=== PATIENT | female | born 1945 | race Caucasian/White ===

== ENCOUNTER 2016-07-30 09:33 | Day surgery (SDC) | payer MEDICARE, BC ==
[2016-07-30 10:33] LABS: HEMATOCRIT 41.9 % (36.0-47.0); HEMOGLOBIN 13.6 g/dL (12.0-15.5); HGB HCT DIFFERENCE -1.1; MEAN CORPUSCULAR HEMOGLOBIN 29.2 pg (27.0-33.4); MEAN CORPUSCULAR HGB CONC 32.5 g/dL (32.0-36.0); MEAN CORPUSCULAR VOLUME 90 fl (80-97); RED BLOOD COUNT 4.65 10^6/uL (3.72-5.28); RED CELL DISTRIBUTION WIDTH 13.9 % (11.5-14.0); WHITE BLOOD COUNT 3.9 10^3/uL (4.0-10.5)
[2016-07-30 10:41] LABS: PROTHROMBIN TIME 13.6 SEC (11.4-15.4)
[2016-07-30 10:42] LABS: PARTIAL THROMBOPLASTIN TIME 28.5 SEC (23.5-35.8)
[2016-07-30 10:59] LABS: ANION GAP 14 (5-19); BLOOD UREA NITROGEN 16 mg/dL (7-20); CALCIUM 9.2 mg/dL (8.4-10.2); CARBON DIOXIDE 22 mmol/L (22-30); CHLORIDE 109 mmol/L (98-107); GLUCOSE 71 mg/dL (75-110); POTASSIUM 4.3 mmol/L (3.6-5.0); SODIUM 145.3 mmol/L (137-145)
[2016-07-30] MEDS ORDERED: NALOXONE HCL INJ/PF 0.4 MG/1 ML SDV ONE (10:59)
[2016-07-30] MEDS ORDERED: PROMETHAZINE HCL INJ 25 MG/1 ML VIAL ONE (10:59)
[2016-07-30] MEDS ORDERED: ONDANSETRON HCL INJ/PF 4 MG/2 ML SDV ONE (10:59)
[2016-07-30] MEDS ORDERED: GLYCOPYRROLATE INJ 0.4 MG/2 ML VIAL ONE (10:59)
[2016-07-30] MEDS ORDERED: FLUMAZENIL INJ 0.5 MG/5 ML VIAL IV ONE (11:00)
[2016-07-30] MEDS ORDERED: EPINEPHRINE INJ 1 MG/10 ML DISP.SYRIN ONE (11:00)
[2016-07-30] MEDS ORDERED: MIDAZOLAM 2 MG/2 ML INJ ONE (11:00)
[2016-07-30] MEDS ORDERED: GLUCAGON,HUMAN RECOMB 1 MG INJ ONE (11:01)
[2016-07-30] MEDS: MIDAZOLAM 2 MG/2 ML INJ ONE ×3 (11:30→11:38)
[2016-07-30] MEDS: FENTANYL CITRATE INJ/PF 100 MCG/2 ML AMPUL ONE ×3 (11:34→12:00)
--- NOTE | 2016-07-30 12:31 | Operative Report ---
Operative Report DATE OF SURGERY: 07/30/16 PREOPERATIVE DIAGNOSIS: Blood per rectum POSTOPERATIVE DIAGNOSIS: Descending colon mass, 3 column internal hemorrhoids OPERATION: Colonoscopy with biopsy of descending colon mass with tattoo marking. Anoscopy with hemorrhoidal banding 3 SURGEON: SARITA MOSES ANESTHESIA: Moderate Sedation TISSUE REMOVED OR ALTERED: Descending colon mass biopsy COMPLICATIONS: None ESTIMATED BLOOD LOSS: minimal INTRAOPERATIVE FINDINGS: Prominent 3 column internal hemorrhoids. Markedly redundant sigmoid colon. At what appears to be the descending colon a 3 cm sessile highly suspicious mucosal irregularity. PROCEDURE: Informed consent was obtained. Patient was brought to the endoscopy suite and placed on the endoscopy suite table with her left side down. IV sedation with Versed and fentanyl was administered. Digital rectal exam revealed no palpable perianal masses. Although she did have the perianal skin tags. Endoscope was passed via the patient's anus it was fed to the cecum the sigmoid colon was markedly redundant making the procedure somewhat difficult during the passage of this area. The cecum appeared normal as did the right colon and the transverse colon. At what appeared to be the descending colon there was a 3 cm ridge of mucosal irregularity/mass. It was highly suspicious for malignancy. This area was biopsied multiple times. Yolanda ink was injected at 3 quadrants. Sigmoid colon other than his marked redundancy appeared normal. Rectum appeared normal. Anoscopy demonstrated prominent 3 column internal hemorrhoids. Right anterior, right posterior, and left lateral hemorrhoidal complexes were all suctioned banded, taking great care to place the bands above the level of the dentate line. Patient tolerated procedure well with no apparent complications and was taken to the recovery area in stable condition. Patient's rectal bleeding most certainly secondary to her internal hemorrhoids now status post successful rubber band ligation 3. Patient with highly suspicious area in the descending colon status post biopsy and Yolanda ink marking. I will follow-up with the patient with the biopsy results next week.
--- NOTE | 2016-07-30 12:38 | PDOC DISCHARGE SUMMARY ---
Discharge Summary (SDC) - Discharge Final Diagnosis: 3 column internal hemorrhoids. Suspicious 3 cm mass at the descending colon. Date of Surgery: 07/30/16 Discharge Date: 07/30/16 Condition: Good Treatment or Instructions: Underwent colonoscopy with biopsy of descending colon mass with Yolanda ink marking. Anoscopy with 3 column internal hemorrhoidal banding. Follow-up with me next week. Prescriptions: Docusate Sodium [Colace 100 mg Capsule] 100 mg PO BID #60 capsule Oxycodone HCl/Acetaminophen [Percocet 5-325 mg Tablet] 1 tab PO ASDIR PRN #25 tablet PRN Reason: Discharge Diet: As Tolerated Discharge Activity: Activity As Tolerated Report the Following to Your Physician Immediately: Increase in Pain - Normal to have the anal discomfort but call M.D. for severe pain, Fever over 101 Degrees, Unusual Bleeding - Normal to have small amounts of blood per rectum. Other Items to Report to MD: inability to urinate.
[2016-07-30 13:21] VITALS: BP 115/57
== END 2016-07-30 13:25 | disposition home or self-care (01) ==
LOC: END 09:33
PROVIDERS: ATTEND Surgery
PROC: 0DBM8ZX Excision of Descending Colon, Via Natural or Artificial Opening Endoscopic, Diagnostic (ICD-10-PCS; principal; 2016-07-30 11:00)
PROC: 06LY0CC Occlusion of Hemorrhoidal Plexus with Extraluminal Device, Open Approach (ICD-10-PCS; 2016-07-30 11:00)
DX: K62.5 Hemorrhage of anus and rectum (principal); K64.8 Other hemorrhoids; D12.4 Benign neoplasm of descending colon; Z88.5 Allergy status to narcotic agent; Z86.73 Personal history of transient ischemic attack (TIA), and cerebral infarction without residual deficits; I10 Essential (primary) hypertension; M19.90 Unspecified osteoarthritis, unspecified site; Z79.82 Long term (current) use of aspirin; Z79.899 Other long term (current) drug therapy
CPT/HCPCS: 45380; 46221; 36415; 85027; 85610; 85730; 80048; 88305 ×2; J2250; J3010; J0171; J1610; J2310; J2405; J2550; J3490

== ENCOUNTER 2016-09-10 09:31 | Inpatient (IN) | payer MEDICARE, BC ==
[2016-09-03 10:35] LABS: HEMATOCRIT 35.4 % (36.0-47.0); HEMOGLOBIN 11.6 g/dL (12.0-15.5); HGB HCT DIFFERENCE -0.6; MEAN CORPUSCULAR HEMOGLOBIN 29.1 pg (27.0-33.4); MEAN CORPUSCULAR HGB CONC 32.8 g/dL (32.0-36.0); MEAN CORPUSCULAR VOLUME 89 fl (80-97); RED BLOOD COUNT 3.99 10^6/uL (3.72-5.28); WHITE BLOOD COUNT 4.7 10^3/uL (4.0-10.5)
[2016-09-03 11:00] LABS: ALANINE AMINOTRANSFERASE 29 U/L (9-52); ALBUMIN 3.7 g/dL (3.5-5.0); ALKALINE PHOSPHATASE 58 U/L (38-126); ANION GAP 8 (5-19); ASPARTATE AMINO TRANSFERASE 30 U/L (14-36); BILIRUBIN,TOTAL 0.4 mg/dL (0.2-1.3); BLOOD UREA NITROGEN 13 mg/dL (7-20); CALCIUM 9.1 mg/dL (8.4-10.2); CARBON DIOXIDE 23 mmol/L (22-30); CHLORIDE 113 mmol/L (98-107); GLUCOSE 91 mg/dL (75-110); POTASSIUM 3.9 mmol/L (3.6-5.0); SODIUM 144.1 mmol/L (137-145); TOTAL PROTEIN 6.3 g/dL (6.3-8.2)
[2016-09-03 11:27] LABS: CARCINOEMBRYONIC ANTIGEN 0.5 ng/mL (<3.0)
[~2016-09-10 09:31] MED LIST: BUPIVACAINE HCL 0.25 % INJ/PF (2.5 MG/1 ML) 30 ML VIAL ONE; ERTAPENEM SODIUM 1 GM in NORMAL SALINE 50 ML IV PRN; GLUCAGON,HUMAN RECOMB 1 MG INJ ONE; RINGERS SOLUTION,LACTATED 1,000 ML IV PRN
[2016-09-10] MEDS ORDERED: PROPOFOL INJ 200 MG/20 ML VIAL IV ONE (10:32)
[2016-09-10] MEDS ORDERED: MIDAZOLAM 2 MG/2 ML INJ ONE (10:32)
[2016-09-10] MEDS ORDERED: FENTANYL CITRATE INJ/PF 250 MCG/5 ML AMPULE ONE ×2 (10:32→12:57)
[2016-09-10] MEDS ORDERED: ACETAMINOPHEN 100 ML IV ONE (10:33)
[2016-09-10] MEDS ORDERED: MORPHINE SULFATE 10 MG/ML INJ ONE (10:34)
[2016-09-10] MEDS ORDERED: PROMETHAZINE HCL INJ 25 MG/1 ML VIAL IV PRN ×2 (12:49)
[2016-09-10] MEDS ORDERED: DIPHENHYDRAMINE HCL 50 MG/ML VIAL IV PRN (12:49)
[2016-09-10] MEDS ORDERED: MORPHINE SULFATE 10 MG/ML INJ IV PRN (12:49)
[2016-09-10] MEDS ORDERED: OXYCODONE-ACETAMINOPHEN 5-325 MG TABLET PO PRN ×2 (12:49)
[2016-09-10] MEDS ORDERED: MEPERIDINE HCL/PF INJ 25 MG/1 ML DISP.SYRIN IV PRN (12:49)
[2016-09-10] MEDS ORDERED: FENTANYL CITRATE INJ/PF 100 MCG/2 ML AMPUL IV PRN ×3 (12:49)
[2016-09-10] MEDS ORDERED: HYDROMORPHONE HCL INJ/PF 2 MG/ML AMPULE IV PRN (13:50)
[2016-09-10] MEDS ORDERED: KETOROLAC TROMETHAMINE INJ/PF 30 MG/1 ML SDV IV PRN (13:50)
[2016-09-10] MEDS ORDERED: ONDANSETRON HCL INJ/PF 4 MG/2 ML SDV IV PRN (13:50)
--- NOTE | 2016-09-10 13:50 | Operative Report ---
Operative Report DATE OF SURGERY: 09/10/16 PREOPERATIVE DIAGNOSIS: colon Adenomatous polyp POSTOPERATIVE DIAGNOSIS: Adenomatous polyp of the transverse colon OPERATION: Laparoscopic assisted partial transverse colon resection SURGEON: SARITA MOSES ANESTHESIA: GA TISSUE REMOVED OR ALTERED: Mid transverse colon COMPLICATIONS: None ESTIMATED BLOOD LOSS: minimal INTRAOPERATIVE FINDINGS: Tattoo marking at the mid transverse colon with 2 cm sessile mass that appeared mucosal. PROCEDURE: Informed consent was obtained. Patient was brought to the operating room placed operating table in supine position after satisfactory induction of general anesthesia patient was placed in a low lithotomy position and her abdomen and perineum were prepped and draped in usual sterile fashion. A infraumbilical midline incision was made dissection carried out through the fascia and the peritoneal cavity entered without difficulty Wade trocar was inserted pneumoperitoneum produced with good patient toleration. 5 mm trocar was placed in the right lateral abdomen a 12 mm trocar was placed low in the right lower abdomen. Laparoscopic view failed to demonstrate the the Yolanda ink marking however her anatomy appeared amenable for a laparoscopic approach. The Wade trocar was removed and the incision was extended to allow introduction of a laparoscopic hand port. With the assistance of the laparoscopic hand port I was able to identify the Yolanda ink marking. The Yolanda ink marking was clearly at the mid transverse colon. With this finding I did not feel that he would be appropriate to resect half of her colon for this benign mass. I could not feel the mass at the Yolanda ink marking and there was no evidence of puckering nor palpable mass to suggest a malignancy. The transverse colon was redundant enough that it the easily came out of the laparoscopic hand port site. The trochars were removed and the transverse colon was delivered out of the abdomen through the laparoscopic hand port site. Segmental transverse colon resection was performed mobilizing the omentum off of the transverse colon and the dividing the transverse colon proximal and distal to the Yolanda ink marking using a LAURA stapling device. The mesentery of the resected segment was taken by clamping dividing and tying post to the bowel. A hematoma develop in the mesentery adjacent to the distal transverse colon end. With this finding I elected to resect the a few more centimeters of the transverse colon using a LAURA stapling device and taking the mesentery with clamping dividing and tying. The two ends of the transverse colon appeared pink and viable with the triphasic Doppler signals in the mesentery. The two ends came together well without any tension for a [id number] functional end-to-end anastomosis. The specimen was the sent to pathology where was open verifying that the lesion of question was indeed in the specimen with good margins the margin appeared closer to the distal margin but the again a additional distal margin had been made with the further resection of that end of transverse colon. The mass felt to be mucosal and not attached to the deeper colon wall all consistent with adenoma. Anastomosis was then created the using a LAURA stapling device creating a [id number] functional end-to-end anastomosis. the enterotomy created to introduce the stapling device was closed with a TA stapling device. The mesenteric defect was closed with running Vicryl suture. Hemostasis appeared excellent. The anastomosis appeared secure. The omentum was draped over the anastomosis. Sponge needle and strength counts were all correct. The 12 mm trocar site fascial defect was closed with interrupted Vicryl sutures. The the hand port fascial defect was closed with running PDS suture. Skin was closed with morena. Marcaine was injected at the port sites. Patient tolerated procedure well with no apparent complications and was taken to the recovery area in stable condition.
[2016-09-10] MEDS ORDERED: GLYCOPYRROLATE INJ 0.4 MG/2 ML VIAL ONE (14:20)
[2016-09-10] MEDS ORDERED: NEOSTIGMINE METHYLSULFATE 10 MG/10 ML VIAL ONE (14:20)
[2016-09-10] MEDS ORDERED: ROCURONIUM BROMIDE INJ 50 MG/5 ML VIAL IV ONE (14:20)
[2016-09-10] MEDS ORDERED: ONDANSETRON HCL INJ/PF 4 MG/2 ML SDV ONE (14:20)
[2016-09-10] MEDS ORDERED: LIDOCAINE 2% INJ-PF (20 MG/ML) 10 ML AMPUL ONE (14:20)
[2016-09-10] MEDS ORDERED: SUCCINYLCHOLINE CHLORIDE INJ 200 MG/10 ML VIAL ONE (14:20)
[2016-09-10] MEDS ORDERED: METOCLOPRAMIDE HCL INJ/PF 10 MG/2 ML SDV ONE (14:20)
[2016-09-10] MEDS ORDERED: KETOROLAC TROMETHAMINE INJ/PF 30 MG/1 ML SDV ONE (14:50)
--- NOTE | 2016-09-10 23:58 | PDOC PROGRESS REPORT ---
Subjective Progress Note for:: 09/10/16 Subjective:: Feels well. No complaints Physical Exam Vital Signs: Temp Pulse Resp BP Pulse Ox 98.6 F 79 16 113/45 L 97 09/10/16 23:47 09/10/16 23:47 09/10/16 23:47 09/10/16 23:47 09/10/16 23:47 Pulse Oximeter Continuous Start: 09/10/16 17: 32 Freq: RTQ4 Status: Active Document 09/10/16 20:00 STI (Rec: 09/10/16 21:28 STI [email or web address]) Pulse Oximetry Assessment Oxygen Saturation (92-100) 97 Oxygen Delivery Method Room Air Fraction of Inspired Oxygen (FIO2) 21 Equipment Usage Equipment in Use Continuous SpO2 Machine # N-6 Intake & Output 09/09/16 09/10/16 09/11/16 06:59 06:59 06:59 Intake Total 3950 Output Total 220 Balance 3730 General appearance: PRESENT: no acute distress, cooperative Respiratory exam: PRESENT: clear to auscultation mary Cardiovascular exam: PRESENT: RRR GI/Abdominal exam: PRESENT: soft - Soft, nondistended, minimal tenderness. Extremities exam: PRESENT: other - No swelling and no tenderness. Results Laboratory Results: 09/03/16 09:34 09/03/16 09:34 Assessment & Plan - Diagnosis (1) Adenomatous polyp of transverse colon Is this a current diagnosis for this admission?: YesPlan: Status post laparoscopic assisted partial transverse colon resection. Patient looks very good. Will likely start a diet tomorrow morning.
[2016-09-11] MEDS: DEXTROSE 5%-1/2 NORMAL SALINE 1,000 ML IV PRN ×2 (00:09→08:00)
[2016-09-11 04:45] LABS: HEMATOCRIT 30.3 % (36.0-47.0); HGB HCT DIFFERENCE -0.3; MEAN CORPUSCULAR HEMOGLOBIN 28.6 pg (27.0-33.4); MEAN CORPUSCULAR HGB CONC 33.1 g/dL (32.0-36.0); MEAN CORPUSCULAR VOLUME 86 fl (80-97); RED BLOOD COUNT 3.51 10^6/uL (3.72-5.28); RED CELL DISTRIBUTION WIDTH 13.1 % (11.5-14.0); WHITE BLOOD COUNT 9.1 10^3/uL (4.0-10.5)
[2016-09-11 05:05] LABS: ANION GAP 8 (5-19); BLOOD UREA NITROGEN 10 mg/dL (7-20); CARBON DIOXIDE 20 mmol/L (22-30); CHLORIDE 109 mmol/L (98-107); CREATININE RESULT 0.74 mg/dL (0.52-1.25); GLUCOSE 148 mg/dL (75-110); POTASSIUM 3.6 mmol/L (3.6-5.0); SODIUM 137.2 mmol/L (137-145)
[2016-09-11] MEDS ORDERED: (PENDING PHARMACY ID) (Diltiazem Hcl [Diltiazem Er] 120 MG) PO SCH (10:00)
[2016-09-11] MEDS ORDERED: TOPIRAMATE 100 MG TABLET PO SCH (10:00)
[2016-09-11] MEDS ORDERED: ASPIRIN 81 MG TABLET, ENT COATED PO SCH (10:00)
--- NOTE | 2016-09-11 10:01 | PDOC PROGRESS REPORT ---
Subjective Progress Note for:: 09/11/16 Subjective:: feels well. Physical Exam Vital Signs: Temp Pulse Resp BP Pulse Ox 98.9 F 79 18 108/43 L 98 09/11/16 07:38 09/11/16 07:38 09/11/16 07:38 09/11/16 07:38 09/11/16 07:38 Pulse Oximeter Continuous Start: 09/10/16 17: 32 Freq: RTQ4 Status: Active Document 09/11/16 04:00 STI (Rec: 09/11/16 04:15 STI [email or web address]) Pulse Oximetry Assessment Oxygen Saturation (92-100) 97 Oxygen Delivery Method Room Air Fraction of Inspired Oxygen (FIO2) 21 Equipment Usage Equipment in Use Continuous SpO2 Machine # N-6 Intake & Output 09/10/16 09/11/16 09/12/16 06:59 06:59 06:59 Intake Total 5270 Output Total 820 Balance 4450 Weight 71.4 kg General appearance: PRESENT: no acute distress Respiratory exam: PRESENT: clear to auscultation mary Cardiovascular exam: PRESENT: RRR GI/Abdominal exam: PRESENT: other - soft, nd, minimal tenderness Extremities exam: PRESENT: other - no swelling Results Laboratory Results: 09/11/16 04:16 09/11/16 04:16 09/11/16 09/11/16 04:16 04:16 WBC 9.1 RBC 3.51 L Hgb 10.0 L Hct 30.3 L MCV 86 MCH 28.6 MCHC 33.1 RDW 13.1 Plt Count 160 Sodium 137.2 Potassium 3.6 Chloride 109 H Carbon Dioxide 20 L Anion Gap 8 BUN 10 Creatinine 0.74 Est GFR ( Amer) > 60 Est GFR (Non-Af Amer) > 60 Glucose 148 H Calcium 8.0 L Assessment & Plan - Diagnosis (1) Adenomatous polyp of transverse colon Is this a current diagnosis for this admission?: YesPlan: Status post laparoscopic assisted partial transverse colon resection. Patient looks very good. try clears
[2016-09-11] MEDS: MONTELUKAST SODIUM 10 MG TABLET PO SCH (10:05)
[2016-09-11] MEDS: RALOXIFENE HCL 60 MG TABLET PO SCH (10:05)
[2016-09-11] MEDS: DILTIAZEM HCL 120 MG CAP.SR.24H PO SCH (16:57)
[2016-09-11] MEDS ORDERED: DEXTROSE 5%-1/2 NORMAL SALINE 1,000 ML IV PRN (17:00)
[2016-09-11] MEDS: TOPIRAMATE 100 MG TABLET PO SCH (21:14)
--- NOTE | 2016-09-12 08:32 | PDOC PROGRESS REPORT ---
Subjective Progress Note for:: 09/12/16 Subjective:: Passing dark blood and bright red blood per rectum several times this morning. No lightheadedness. Minimal abdominal discomfort. No nausea or vomiting. Physical Exam Vital Signs: Temp Pulse Resp BP Pulse Ox 98.7 F 83 16 133/60 H 97 09/12/16 05:00 09/12/16 05:00 09/12/16 05:00 09/12/16 05:00 09/12/16 05:00 Pulse Oximeter Continuous Start: 09/10/16 17: 32 Freq: RTQ4 Status: Complete Document 09/11/16 11:48 HCR (Rec: 09/11/16 11:48 HCR [email or web address]) Pulse Oximetry Assessment Equipment Usage Equipment Discontinued Continuous SpO2 Machine # 6 Intake & Output 09/11/16 09/12/16 09/13/16 06:59 06:59 06:59 Intake Total 5270 2206 Output Total 820 Balance 4450 2206 Weight 71.4 kg 73.2 kg General appearance: PRESENT: no acute distress, cooperative Respiratory exam: PRESENT: clear to auscultation mary Cardiovascular exam: PRESENT: RRR GI/Abdominal exam: PRESENT: other - Soft, nondistended, minimal abdominal tenderness. Clean dry and intact. Musculoskeletal exam: PRESENT: other - No swelling. Results Laboratory Results: 09/11/16 04:16 09/11/16 04:16 Assessment & Plan - Diagnosis (1) Adenomatous polyp of transverse colon Is this a current diagnosis for this admission?: YesPlan: Status post laparoscopic assisted partial transverse colon resection. Blood per rectum likely anastomotic bleed. Stop aspirin. Check hematocrit. Observe.
[2016-09-12 09:41] LABS: HEMATOCRIT 30.7 % (36.0-47.0); HEMOGLOBIN 9.9 g/dL (12.0-15.5); MEAN CORPUSCULAR HEMOGLOBIN 28.3 pg (27.0-33.4); MEAN CORPUSCULAR HGB CONC 32.3 g/dL (32.0-36.0); MEAN CORPUSCULAR VOLUME 88 fl (80-97); RED BLOOD COUNT 3.51 10^6/uL (3.72-5.28); RED CELL DISTRIBUTION WIDTH 13.4 % (11.5-14.0); WHITE BLOOD COUNT 7.1 10^3/uL (4.0-10.5)
[2016-09-12] MEDS: RALOXIFENE HCL 60 MG TABLET PO SCH (09:52)
[2016-09-12] MEDS: DILTIAZEM HCL 120 MG CAP.SR.24H PO SCH (09:53)
[2016-09-12] MEDS: MONTELUKAST SODIUM 10 MG TABLET PO SCH (09:53)
[2016-09-12 10:15] LABS: ANION GAP 13 (5-19); BLOOD UREA NITROGEN 4 mg/dL (7-20); CARBON DIOXIDE 19 mmol/L (22-30); CHLORIDE 116 mmol/L (98-107); CREATININE RESULT 0.67 mg/dL (0.52-1.25); GLUCOSE 81 mg/dL (75-110); POTASSIUM 3.6 mmol/L (3.6-5.0)
[2016-09-12] MEDS: TOPIRAMATE 100 MG TABLET PO SCH (21:03)
--- NOTE | 2016-09-13 08:06 | PDOC PROGRESS REPORT ---
Subjective Progress Note for:: 09/13/16 Subjective:: Tolerating solid diet well. Minimal abdominal discomfort. Still having multiple small amounts of bowel movements non-bloody but the dark but not the melena. In viewing her toilet it does not appear exudative nor grossly bloody. Physical Exam Vital Signs: Temp Pulse Resp BP Pulse Ox 98.3 F 79 18 139/51 H 97 09/13/16 00:39 09/13/16 00:39 09/13/16 00:39 09/13/16 00:39 09/13/16 00:39 Pulse Oximeter Continuous Start: 09/10/16 17: 32 Freq: RTQ4 Status: Complete Document 09/11/16 11:48 HCR (Rec: 09/11/16 11:48 HCR [email or web address]) Pulse Oximetry Assessment Equipment Usage Equipment Discontinued Continuous SpO2 Machine # 6 Intake & Output 09/12/16 09/13/16 09/14/16 06:59 06:59 06:59 Intake Total 2206 1600 Balance 2206 1600 Weight 73.2 kg 72.2 kg General appearance: PRESENT: no acute distress, cooperative Respiratory exam: PRESENT: clear to auscultation mary Cardiovascular exam: PRESENT: RRR GI/Abdominal exam: PRESENT: other - Soft, nondistended, nontender to palpation. Clean dry and intact. Results Laboratory Results: 09/12/16 09:32 09/12/16 09:32 09/12/16 09/12/16 09:32 09:32 WBC 7.1 RBC 3.51 L Hgb 9.9 L Hct 30.7 L MCV 88 MCH 28.3 MCHC 32.3 RDW 13.4 Plt Count 153 Sodium 148.0 H Potassium 3.6 Chloride 116 H Carbon Dioxide 19 L Anion Gap 13 BUN 4 L Creatinine 0.67 Est GFR ( Amer) > 60 Est GFR (Non-Af Amer) > 60 Glucose 81 Calcium 8.0 L Assessment & Plan - Diagnosis (1) Adenomatous polyp of transverse colon Is this a current diagnosis for this admission?: YesPlan: Status post laparoscopic assisted partial transverse colon resection. Bleeding appears to have stopped but patient with the some bowel irritability with frequent bowel movements. We'll continue observation in the hospital until this irritability improves.
[2016-09-13] MEDS: RALOXIFENE HCL 60 MG TABLET PO SCH (10:54)
[2016-09-13] MEDS: DILTIAZEM HCL 120 MG CAP.SR.24H PO SCH (10:56)
[2016-09-13] MEDS: MONTELUKAST SODIUM 10 MG TABLET PO SCH (10:56)
[2016-09-13 16:50] VITALS: BP 142/66
--- NOTE | 2016-09-13 20:18 | DISCHARGE SUMMARY E ---
Discharge Summary NAME: JAMES CHAPIN : 1945 AGE: 71Y ADMITTED: 09/10/2016 DISCHARGED: 09/13/2016 DISCHARGE DIAGNOSIS: Adenoma of the transverse colon. PROCEDURE DURING HOSPITALIZATION: Laparoscopic assisted partial transverse colon resection performed on 09/10/2016. HOSPITAL COURSE: The patient underwent the above-mentioned surgery. She did well postoperatively. She had some initially bloody bowel movements that eventually cleared. She still had some frequent bowel movements but it was improving steadily at the time of discharge. She was tolerating a solid diet well. Her abdominal exam looked good with no distension and no tenderness. Her vital signs were stable. The patient is now being discharged to home in good condition. She will follow up with me this coming Friday. She is encouraged to stay active at home but avoid strenuous activity. She may resume all of her home medications. No additional medications were required. She did not want a new prescription for pain meds. DICTATING PHYSICIAN: EDITH MOSES M.D. [id number] PHY#: [id number] ID: [id number] JOB#: [id number] ACCT: [id number] cc:EDITH MOSES M.D. >
== END 2016-09-13 19:20 | disposition home or self-care (01) | DRG 331 ==
LOC: INOR 09:31 → 5 16:00
PROVIDERS: ADMIT Surgery; ATTEND Surgery
PROC: 0DTL4ZZ Resection of Transverse Colon, Percutaneous Endoscopic Approach (ICD-10-PCS; principal; 2016-09-10 11:30)
DX: D12.3 Benign neoplasm of transverse colon (principal); I10 Essential (primary) hypertension; K64.8 Other hemorrhoids; Z86.73 Personal history of transient ischemic attack (TIA), and cerebral infarction without residual deficits; Z79.82 Long term (current) use of aspirin
CPT/HCPCS: 36415; 790; 80048; 80053; 82378; 85027; 86850; 86900; 86901; 88307; 94762; J0131; J0330; J1335; J1610; J1885; J2250; J2270; J2405; J2550; J2704; J2765; J3010; J3490

== ENCOUNTER 2016-10-10 16:04 | Day surgery (SDC) | payer MEDICARE, BC ==
--- NOTE | 2016-10-10 17:14 | ER Document Report ---
ED Medical Screen (RME) - General Chief Complaint: Shortness Of Breath Stated Complaint: POSSIBLE CLOT IN LUNG Notes: Patient was referred here to be sure she doesn't have blood clots in her legs and/or lungs. Patient is exactly 1 month postop intestinal surgery removing portion of her intestine. She says that she's noticed she's been short of breath and having swelling in her legs, each for about 2 weeks, but she does not have any leg pain. She has had a cough for the past 2 days and that is what prompted her to go to her primary care physician where she patient denies any chest pains. Was seen by a PA there who ordered an EKG and chest x-ray which were normal. They then recommended the patient come to the emergency department to make sure she doesn't have blood clots. 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 IN LAST 30 DAYS: No - Related Data Allergies/Adverse Reactions: latex Allergy (Verified 10/10/16 16:32) Rash, skin "rips" off morphine [Morphine] Allergy (Verified 10/10/16 16:32) SHORT OF BREATH, VERY WEAK tramadol [Tramadol] Allergy (Verified 10/10/16 16:32) DRAINED OF ENERGY Past Medical History - Past Medical History Cardiac Medical History: Reports: Hx Hypertension Denies: Hx Atrial Fibrillation, Hx Congestive Heart Failure, Hx Coronary Artery Disease, Hx Heart Attack, Hx Hypercholesterolemia, Hx Peripheral Vascular Disease, Hx Pulmonary Embolism, Hx Heart Murmur Pulmonary Medical History: Reports: Hx Asthma - CHILD, Hx Bronchitis, Hx Sleep Apnea - BIPAP Denies: Hx COPD, Hx Pneumonia, Hx Respiratory Failure, Hx Tuberculosis Neurological Medical History: Reports: Hx Cerebrovascular Accident - ANEUYRSM, Hx Migraine. Denies: Hx Seizures Endocrine Medical History: Denies: Hx Graves' Disease, Hx Hyperthyroidism, Hx Hypothyroidism Renal/ Medical History: Denies: Hx Ovarian Cysts, Hx Peritoneal Dialysis, Hx Pelvic Inflammatory Disease Malignancy Medical History: Denies: Hx Breast Cancer, Hx Cervical Cancer, Hx Leukemia, Hx Lung Cancer, Hx Ovarian Cancer GI Medical History: Reports: Hx Gastroesophageal Reflux Disease. Denies: Hx Crohn's Disease, Hx Hiatal Hernia, Hx Irritable Bowel, Hx Liver Failure, Hx Ulcer Musculoskeltal Medical History: Denies Hx Arthritis, Denies Hx Fibromyalgia, Denies Hx Multiple Sclerosis, Denies Hx Muscular Dystrophy Psychiatric Medical History: Denies: Hx Bipolar Disorder, Hx Dementia, Hx Depression, Hx Post Traumatic Stress Disorder, Hx Schizophrenia Traumatic Medical History: Reports: Hx Fractures - BACK Infectious Medical History: Denies: Hx HIV Past Surgical History: Reports: Hx Cholecystectomy, Hx Hysterectomy. Denies: Hx Appendectomy, Hx Bowel Surgery, Hx Section, Hx Colostomy, Hx Coronary Artery Bypass Graft, Hx Gastric Bypass Surgery, Hx Herniorrhaphy, Hx Mastectomy, Hx Pacemaker, Hx Tonsillectomy, Hx Tubal Ligation - Immunizations Hx Diphtheria, Pertussis, Tetanus Vaccination: No - Unsure Physical Exam - Vital signs Vitals: Temp Pulse Resp BP Pulse Ox 98.8 F 83 22 H 179/95 H 99 10/10/16 16:32 10/10/16 16:32 10/10/16 16:32 10/10/16 16:32 10/10/16 16:32 Course - Vital Signs Vital signs: Temp Pulse Resp BP Pulse Ox 98.8 F 83 22 H 179/95 H 99 10/10/16 16:32 10/10/16 16:32 10/10/16 16:32 10/10/16 16:32 10/10/16 16:32
--- NOTE | 2016-10-10 17:41 | ER Document Report ---
ED Respiratory Problem - General Chief Complaint: Shortness Of Breath Stated Complaint: POSSIBLE CLOT IN LUNG Time seen by provider: 17:41 Mode of Arrival: Ambulatory Information source: Patient TRAVEL OUTSIDE OF THE [place] IN LAST 30 DAYS: No - HPI Patient complains to provider of: Short of breath, Other - Generalized weakness and malaise Onset: Last week Duration: Worse/persistent Severity: Moderate Context: Recent surgery Short of Breath: Moderate Cough: Productive Sputum amount: Small Sputum color: Green Sputum consistency: Mucoid Associated symptoms: Congestion, Cough Recently seen / treated by doctor: Yes Notes: Patient is a 71-year-old female who was sent to the emergency room by her primary care provider for complaints of shortness of breath, dyspnea on exertion , generalized weakness and malaise that's been going on over the past week or so , patient reports a history of recent abdominal surgery which was performed on 09/10/2016 at this facility, she reports a cough that's productive of greenish colored phlegm at times, sore throat, but denies any fever - Related Data Allergies/Adverse Reactions: latex Allergy (Verified 10/10/16 16:32) Rash, skin "rips" off morphine [Morphine] Allergy (Verified 10/10/16 16:32) SHORT OF BREATH, VERY WEAK tramadol [Tramadol] Allergy (Verified 10/10/16 16:32) DRAINED OF ENERGY Home Medications: Current Home Medications Alprazolam [Xanax 0.25 mg Tablet] 0.25 mg PO TIDP PRN 10/10/16 [History] Aspirin [Aspirin EC] 81 mg PO DAILY 10/10/16 [History] Calcium Carbonate/Vitamin D3 [Calcium 1,000 + D3 Caplet] 2 tab PO DAILY [History] Diltiazem HCl [Diltiazem 12Hr ER] 120 mg PO DAILY 10/10/16 [History] Fexofenadine HCl [Tasha] 180 mg PO DAILY 10/10/16 [History] Multivits-Min/Iron/FA/Lutein [Centrum Silver Women Tablet] 1 tab PO DAILY [History] Raloxifene HCl [Evista 60 mg Tablet] 60 mg PO DAILY 10/10/16 [History] Ranitidine HCl [Zantac] 150 mg PO DAILYP PRN 10/10/16 [History] Sumatriptan Succ/Naproxen Sod [Treximet 85-500 mg Tablet] 1 tab PO Q2HP PRN 12/21 [History] Topiramate [Topamax 100 Mg Tablet] 100 mg PO QHS 10/10/16 [History] Past Medical History - General Information source: Patient - Social History Smoking Status: Never Smoker Family History: Reviewed & Not Pertinent Patient has suicidal ideation: No Patient has homicidal ideation: No - Past Medical History Cardiac Medical History: Reports: Hx Hypertension Denies: Hx Atrial Fibrillation, Hx Congestive Heart Failure, Hx Coronary Artery Disease, Hx Heart Attack, Hx Hypercholesterolemia, Hx Peripheral Vascular Disease, Hx Pulmonary Embolism, Hx Heart Murmur Pulmonary Medical History: Reports: Hx Asthma - CHILD, Hx Bronchitis, Hx Sleep Apnea - BIPAP Denies: Hx COPD, Hx Pneumonia, Hx Respiratory Failure, Hx Tuberculosis Neurological Medical History: Reports: Hx Cerebrovascular Accident - ANEUYRSM, Hx Migraine. Denies: Hx Seizures Endocrine Medical History: Denies: Hx Graves' Disease, Hx Hyperthyroidism, Hx Hypothyroidism Renal/ Medical History: Denies: Hx Ovarian Cysts, Hx Peritoneal Dialysis, Hx Pelvic Inflammatory Disease Malignancy Medical History: Denies: Hx Breast Cancer, Hx Cervical Cancer, Hx Leukemia, Hx Lung Cancer, Hx Ovarian Cancer GI Medical History: Reports: Hx Gastroesophageal Reflux Disease. Denies: Hx Crohn's Disease, Hx Hiatal Hernia, Hx Irritable Bowel, Hx Liver Failure, Hx Ulcer Musculoskeltal Medical History: Denies Hx Arthritis, Denies Hx Fibromyalgia, Denies Hx Multiple Sclerosis, Denies Hx Muscular Dystrophy Psychiatric Medical History: Denies: Hx Bipolar Disorder, Hx Dementia, Hx Depression, Hx Post Traumatic Stress Disorder, Hx Schizophrenia Traumatic Medical History: Reports: Hx Fractures - BACK Infectious Medical History: Denies: Hx HIV Past Surgical History: Reports: Hx Cholecystectomy, Hx Hysterectomy. Denies: Hx Appendectomy, Hx Bowel Surgery, Hx Section, Hx Colostomy, Hx Coronary Artery Bypass Graft, Hx Gastric Bypass Surgery, Hx Herniorrhaphy, Hx Mastectomy, Hx Pacemaker, Hx Tonsillectomy, Hx Tubal Ligation - Immunizations Hx Diphtheria, Pertussis, Tetanus Vaccination: No - Unsure Review of Systems - Review of Systems Constitutional: Malaise, Weakness EENT: No symptoms reported Cardiovascular: Dyspnea, Edema Respiratory: Short of breath Gastrointestinal: No symptoms reported Genitourinary: No symptoms reported Female Genitourinary: No symptoms reported Musculoskeletal: No symptoms reported Skin: No symptoms reported Hematologic/Lymphatic: No symptoms reported Neurological/Psychological: No symptoms reported -: Yes All other systems reviewed and negative Physical Exam - Vital signs Vitals: Temp Pulse Resp BP Pulse Ox 98.8 F 83 22 H 179/95 H 99 10/10/16 16:32 10/10/16 16:32 10/10/16 16:32 10/10/16 16:32 10/10/16 16:32 Interpretation: Hypertensive - General General appearance: Alert In distress: None - HEENT Head: Normocephalic, Atraumatic Eyes: Pale conjunctiva Extraocular movements intact: Yes Eyelashes: Normal Pupils: PERRL Pharynx: Normal Neck: Normal - Respiratory Respiratory status: No respiratory distress Chest status: Nontender Breath sounds: Normal Chest palpation: Normal - Cardiovascular Rhythm: Regular Heart sounds: Normal auscultation Murmur: No - Abdominal Inspection: Normal Distension: No distension Bowel sounds: Normal Tenderness: Nontender Organomegaly: No organomegaly - Back Back: Normal, Nontender - Extremities General upper extremity: Normal inspection, Nontender, Normal ROM, Normal temperature General lower extremity: Normal inspection, Nontender, Edema - Trace, Normal ROM , Normal temperature. No: Avni's sign - Neurological Neuro grossly intact: Yes Cognition: Normal Orientation: AAOx4 [place] Coma Scale Eye Opening: Spontaneous Tanja Coma Scale Verbal: Oriented [place] Coma Scale Motor: Obeys Commands Tanja Coma Scale Total: 15 Speech: Normal Motor strength normal: LUE, RUE, LLE, RLE Sensory: Normal - Psychological Associated symptoms: Normal affect, Normal mood - Skin Skin Temperature: Warm Skin Moisture: Dry Skin Color: Pale Course - Re-evaluation Re-evalutation: 10/11/16 00:20 Patient with hemoglobin of 6.7, I went into the room to discuss admission and blood transfusion which patient declined, unable to give me a reason as to why, however shortly thereafter patient surgeon came to the room and was able to convince patient to be admitted into have blood transfusion, therefore 2 units of packed red blood cells were ordered patient was placed on observation admission under surgical service for further evaluation and treatment - Vital Signs Vital signs: Temp Pulse Resp BP Pulse Ox 98.3 F 85 16 156/76 H 100 10/10/16 19:40 10/10/16 19:40 10/10/16 19:40 10/10/16 19:40 10/10/16 19:40 - Laboratory Result Diagrams: 10/10/16 18:15 10/10/16 17:10 Laboratory results interpreted by me: 10/10/16 10/10/16 10/10/16 17:10 17:10 17:10 WBC RBC Hgb Hct MCH MCHC RDW Monocytes % D-Dimer 1.08 H Sodium 146.6 H Chloride 116 H AST 51 H Total Protein 5.8 L Crossmatch See Detail 10/10/16 18:15 WBC 3.7 L RBC 2.70 L Hgb 6.7 L Hct 21.9 L MCH 25.0 L MCHC 30.8 L RDW 15.9 H Monocytes % 13.2 H D-Dimer Sodium Chloride AST Total Protein Crossmatch - Diagnostic Test Radiology reviewed: Image reviewed, Reports reviewed - Transfer of Care Care transferred to following provider: Dr. Segura Discharge - Discharge Clinical Impression: Shortness of breath Anemia Qualifiers: Anemia type: unspecified type Qualified Code(s): D64.9 - Anemia, unspecified Condition: Fair Disposition: ADMITTED OBSERVATION Admitting Provider: Surgicalist Unit Admitted: Telemetry
[2016-10-10 18:00] LABS: ALANINE AMINOTRANSFERASE 50 U/L (9-52); ALBUMIN 3.6 g/dL (3.5-5.0); ALKALINE PHOSPHATASE 57 U/L (38-126); ANION GAP 9 (5-19); ASPARTATE AMINO TRANSFERASE 51 U/L (14-36); BILIRUBIN,DIRECT 0.1 mg/dL (0.0-0.4); BILIRUBIN,TOTAL 0.2 mg/dL (0.2-1.3); BLOOD UREA NITROGEN 13 mg/dL (7-20); CALCIUM 8.6 mg/dL (8.4-10.2); CARBON DIOXIDE 22 mmol/L (22-30); CHLORIDE 116 mmol/L (98-107); GLUCOSE 91 mg/dL (75-110); SODIUM 146.6 mmol/L (137-145); TOTAL PROTEIN 5.8 g/dL (6.3-8.2)
[2016-10-10 18:39] LABS: ABSOLUTE EOSINOPHILS # (AUTO) 0.1 10^3/uL (0.0-0.6); ABSOLUTE LYMPHOCYTES (AUTO) 1.1 10^3/uL (0.5-4.7); ABSOLUTE MONOCYTES (AUTO) 0.5 10^3/uL (0.1-1.4); EOSINOPHILS % (AUTO) 1.6 % (0-6); HEMATOCRIT 21.9 % (36.0-47.0); HGB HCT DIFFERENCE -1.8; LYMPHOCYTES % (AUTO) 29.8 % (13-45); MEAN CORPUSCULAR HGB CONC 30.8 g/dL (32.0-36.0); MONOCYTES % (AUTO) 13.2 % (3-13); RED CELL DISTRIBUTION WIDTH 15.9 % (11.5-14.0); SEGMENTED NEUTROPHILS % (AUTO) 54.4 % (42-78); WHITE BLOOD COUNT 3.7 10^3/uL (4.0-10.5)
[2016-10-10 18:40] LABS: MEAN CORPUSCULAR VOLUME 81 fl (80-97)
[2016-10-10 18:42] LABS: HEMOGLOBIN 6.7 g/dL (12.0-15.5)
[2016-10-10] MEDS ORDERED: NORMAL SALINE 250 ML IV PRN (20:55)
[2016-10-10] MEDS ORDERED: ACETAMINOPHEN 325 MG TABLET PO ONE (21:33)
--- NOTE | 2016-10-10 21:33 | PDOC H&P ---
History of Present Illness Admission Date/PCP: 10/10/16 21:11 JULY RANDOLPH MD Patient complains of: Generalized weakness and shortness of breath. History of Present Illness: JAMES CHAPIN is a 71 year old female status post partial transverse colon resection for colon polyp about a month ago. Postoperative course was remarkable for postoperative the gastrointestinal bleed that appeared to have resolved. Patient has noted the in the past couple weeks some generalized weakness along with the dyspnea on exertion. Patient denies any presyncope however. She vehemently denies any recent history of blood per rectum nor melena. No diarrhea. No dark stools. no hemetesis. Past Medical History Cardiac Medical History: Reports: Hypertension Denies: Atrial Fibrillation, Congestive Heart Failure, Coronary Artery Disease, Myocardial Infarction, Hyperlipidema, Peripheral Vascular Disease, Pulmonary Embolism, Heart Murmur Pulmonary Medical History: Reports: Asthma - CHILD, Bronchitis, Sleep Apnea - BIPAP Denies: Chronic Obstructive Pulmonary Disease (COPD), Pneumonia, Respiratory Failure, Tuberculosis Neurological Medical History: Reports: Migraine Denies: Seizures Endocrine Medical History: Denies: Hyperthyroidism, Hypothyroidism Renal/ Medical History: Malignancy Medical History: Denies: Breast Cancer, Cervical Cancer, Leukemia, Lung Cancer, Ovarian Cancer GI Medical History: Reports: Gastroesophageal Reflux Disease Denies: Crohn's Disease, Hiatal Hernia Musculoskeltal Medical History: Denies: Arthritis, Fibromyalgia Psychiatric Medical History: Denies: Bipolar Disorder, Dementia, Depression, Post Traumatic Stress Disorder Hematology: Denies: Anemia, Hemophilia, Sickle Cell Disease Infectious Medical History: Denies: HIV Past Surgical History Past Surgical History: Reports: Cholecystectomy, Hysterectomy, Other - Partial transverse colon resection a month ago. Denies: Amputation, Appendectomy, Section, Colostomy, Coronary Artery Bypass Graft, Gastric Bypass Surgery, Herniorrhaphy, Mastectomy, Pacemaker, Tonsillectomy, Tubal Ligation Social History Smoking Status: Never Smoker Frequency of Alcohol Use: None Hx Recreational Drug Use: No Hx Prescription Drug Abuse: No Family History Family History: Reviewed & Not Pertinent Parental Family History Reviewed: No Children Family History Reviewed: No Sibling(s) Family History Reviewed.: No Medication/Allergy Home Medications: Diltiazem HCl [Diltiazem ER] 120 mg PO DAILY 02/18/12 Aspirin [Aspirin EC] 81 mg PO DAILY 01/17/14 Calcium Carbonate [Calcium] 600 mg PO DAILY 01/17/14 Multivitamin [Multi-Vitamin Daily] 1 each PO DAILY 01/17/14 Raloxifene HCl [Evista 60 mg Tablet] 60 mg PO DAILY 01/17/14 Sumatriptan Succ/Naproxen Sod [Treximet 85-500 mg Tablet] 1 each PO PRN PRN Docusate Sodium [Colace 100 mg Capsule] 100 mg PO BID #60 capsule 07/30/16 Topiramate [Topamax 100 mg Tablet] 100 mg PO DAILY 07/30/16 Fexofenadine HCl [Tasha] 180 mg PO DAILY 09/03/16 Allergies/Adverse Reactions: latex Allergy (Verified 10/10/16 16:32) Rash, skin "rips" off morphine [Morphine] Allergy (Verified 10/10/16 16:32) SHORT OF BREATH, VERY WEAK tramadol [Tramadol] Allergy (Verified 10/10/16 16:32) DRAINED OF ENERGY Physical Exam Vital Signs: Temp Pulse Resp BP Pulse Ox 98.3 F 85 16 156/76 H 100 10/10/16 19:40 10/10/16 19:40 10/10/16 19:40 10/10/16 19:40 10/10/16 19:40 General appearance: PRESENT: no acute distress, cooperative Respiratory exam: PRESENT: clear to auscultation mary Cardiovascular exam: PRESENT: tachycardia GI/Abdominal exam: PRESENT: other - Soft, nondistended, nontender to palpation. Extremities exam: PRESENT: other - Subtle bilateral lower extremity edema. Nontender. Results Impressions: Chest/Abdomen CTA 10/10/16 17:56 IMPRESSION: Chronic interstitial changes and emphysema.. NO PULMONARY EMBOLI. Venous Doppler Study 10/10/16 17:56 IMPRESSION: NO EVIDENCE OF DVT OR SVT IN THE LEFT LEG. Assessment & Plan - Diagnosis (1) Anemia Qualifiers: Anemia type: unspecified type Qualified Code(s): D64.9 - Anemia, unspecified Is this a current diagnosis for this admission?: YesPlan: Severe symptomatic anemia. Likely due to past gi bleed. Does not appear by history to have ongoing bleeding. Patient the initially did not want to stay in the hospital and refused the blood transfusions. However after a long conversation with the patient, she has at least agreed to stay overnight for blood transfusion but that she wants to go home first thing in the morning. We' ll plan to transfuse her 2 units of blood tonight and provided her post transfusion hematocrit is appropriately elevated, will plan to discharge the patient home tomorrow morning with follow-up with me. She would benefit from a colonoscopy as well as an upper endoscopy but she really does not wish to undergo this procedure at this time. And with her having no dark stools nor dark blood per rectum nor bright red blood per rectum nor any other gross signs of the gastrointestinal bleed, I will hold off the endoscopic evaluation at this time. Hopefully I can convince her to undergo the endoscopic procedures as an outpatient. However if during the course of her hospitalization she were to demonstrate any evidence of ongoing gastrointestinal bleed, I will try to convince her to undergo bowel prep and a colonoscopy and EGD during this admissison.
[2016-10-11 06:31] LABS: HEMATOCRIT 30.3 % (36.0-47.0); HGB HCT DIFFERENCE -1.2; MEAN CORPUSCULAR HEMOGLOBIN 25.7 pg (27.0-33.4); MEAN CORPUSCULAR HGB CONC 32.2 g/dL (32.0-36.0); MEAN CORPUSCULAR VOLUME 80 fl (80-97); RED BLOOD COUNT 3.79 10^6/uL (3.72-5.28); RED CELL DISTRIBUTION WIDTH 16.4 % (11.5-14.0); WHITE BLOOD COUNT 3.8 10^3/uL (4.0-10.5)
[2016-10-11 06:37] LABS: HEMOGLOBIN 9.7 g/dL (12.0-15.5)
[2016-10-11 07:57] LABS: ANION GAP 7 (5-19); BLOOD UREA NITROGEN 9 mg/dL (7-20); CALCIUM 8.5 mg/dL (8.4-10.2); CARBON DIOXIDE 21 mmol/L (22-30); CHLORIDE 117 mmol/L (98-107); GLUCOSE 88 mg/dL (75-110); POTASSIUM 3.8 mmol/L (3.6-5.0); SODIUM 144.5 mmol/L (137-145)
[2016-10-11] MEDS ORDERED: PEG 3350/NA SULF,BICARB,CL/KCL 4000 ML PO ONE (08:02)
[2016-10-11] MEDS ORDERED: DEXTROSE 5%-1/2 NORMAL SALINE 1,000 ML IV PRN (08:20)
--- NOTE | 2016-10-11 08:20 | PDOC PROGRESS REPORT ---
Subjective Progress Note for:: 10/11/16 Subjective:: feels well. Physical Exam Vital Signs: Temp Pulse Resp BP Pulse Ox 98.1 F 75 17 154/67 H 98 10/11/16 03:35 10/11/16 03:35 10/11/16 03:35 10/11/16 03:35 10/11/16 03:35 Intake & Output 10/10/16 10/11/16 10/12/16 06:59 06:59 06:59 Intake Total 1130 Balance 1130 Weight 58.6 kg General appearance: PRESENT: no acute distress, cooperative Respiratory exam: PRESENT: clear to auscultation mray Cardiovascular exam: PRESENT: RRR GI/Abdominal exam: PRESENT: other - soft, nd, ntp Results Laboratory Results: 10/11/16 06:18 10/11/16 10/11/16 06:18 06:18 WBC 3.8 L RBC 3.79 Hgb 9.7 L D Hct 30.3 L MCV 80 MCH 25.7 L MCHC 32.2 RDW 16.4 H Plt Count 151 Sodium Cancelled Potassium Cancelled Chloride Cancelled Carbon Dioxide Cancelled Anion Gap Cancelled BUN Cancelled Creatinine Cancelled Est GFR ( Amer) Cancelled Est GFR (Non-Af Amer) Cancelled Glucose Cancelled Calcium Cancelled Impressions: Chest/Abdomen CTA 10/10/16 17:56 IMPRESSION: Chronic interstitial changes and emphysema.. NO PULMONARY EMBOLI. Venous Doppler Study 10/10/16 17:56 IMPRESSION: NO EVIDENCE OF DVT OR SVT IN THE LEFT LEG. Assessment & Plan - Diagnosis (1) Anemia Qualifiers: Anemia type: unspecified type Qualified Code(s): D64.9 - Anemia, unspecified Is this a current diagnosis for this admission?: YesPlan: tolerated transfusions well. no bowel movements overnight. d/w pt about egd and cscope to evaluate for source of her anemia. pt agrees to stay for a bowel prep today followed by egd and cscope. if can get prepped by this afternoon, will plan procedure today.
[2016-10-11] MEDS ORDERED: GLYCOPYRROLATE INJ 0.4 MG/2 ML VIAL ONE (16:22)
[2016-10-11] MEDS ORDERED: ONDANSETRON HCL INJ/PF 4 MG/2 ML SDV ONE ×2 (16:22→18:56)
[2016-10-11] MEDS ORDERED: NALOXONE HCL INJ/PF 0.4 MG/1 ML SDV ONE (16:22)
[2016-10-11] MEDS ORDERED: EPINEPHRINE INJ 1 MG/10 ML DISP.SYRIN ONE (16:23)
[2016-10-11] MEDS ORDERED: GLUCAGON,HUMAN RECOMB 1 MG INJ ONE (16:23)
[2016-10-11] MEDS ORDERED: FLUMAZENIL INJ 0.5 MG/5 ML VIAL IV ONE (16:23)
[2016-10-11] MEDS: MIDAZOLAM 2 MG/2 ML INJ ONE ×3 (17:16→17:37)
[2016-10-11] MEDS: FENTANYL CITRATE INJ/PF 100 MCG/2 ML AMPUL ONE ×2 (17:18→17:35)
--- NOTE | 2016-10-11 18:38 | Operative Report ---
Operative Report DATE OF SURGERY: 10/11/16 PREOPERATIVE DIAGNOSIS: anemia, gastrointestinal blood loss POSTOPERATIVE DIAGNOSIS: same, esophageal irregularity. Cecal polyp. internal hemorrhoids OPERATION: Esophagogastroduodenoscopy with bx. Colonoscopy with bx and fulguration of cecal polyp. SURGEON: SARITA MOSES ANESTHESIA: Moderate Sedation TISSUE REMOVED OR ALTERED: cecal polyp, distal esophageal bx. COMPLICATIONS: None ESTIMATED BLOOD LOSS: minimal INTRAOPERATIVE FINDINGS: Subtle irregularity of the distal esophagus. Otherwise normal esophagus stomach and duodenum. Redundant colon. Exudate covering the transverse colon anastomosis but no stigmata of recent bleeding. A 1 cm patch of sessile cecal irregularity consistent with a sessile polyp. Partially prolapsing internal hemorrhoids. PROCEDURE: Informed consent was obtained. Patient was brought to the endoscopy suite. IV sedation with Versed and fentanyl was administered. Endoscope was passed via the patient's mouth into the second portion the duodenum. Duodenum appeared to be normal as did the stomach with no ulcers no erosions. At the distal esophagus there was a small region of of subtle mucosal irregularity this region was biopsied. No ulcerations no masses were noted. The esophagus otherwise appeared normal. Patient was repositioned. Patient had partially prolapsed internal hemorrhoids but no stigmata of recent bleeding. Endoscope was passed via the patient's anus it was fed to the cecum. The patient sigmoid colon was markedly redundant making the procedure difficult. At the cecum there was a 1 cm region of mucosal irregularity consistent with a flat sessile polyp. This region was biopsied and then fulgurated with a gold probe. Aggressive fulguration was not performed due to the fact that this area was in the cecum. The remainder of the right colon appeared normal. At the transverse colon the anastomosis was the widely patent but it had an exudative covering but no blood clots and otherwise no stigmata of recent bleeding. The descending colon appeared normal as did the sigmoid colon other than the marked redundancies. The rectum appeared normal. Patient tolerated procedure well with no apparent complications and was taken to the recovery area in stable condition. Esophageal mucosal irregularity seen. Incidental finding. Will await biopsy results to rule out Hartman's esophagus. No evidence of upper gastrointestinal bleed. Patient the has the exudative coat around the anastomosis but no evidence of active bleeding. Suspect that that she bled postoperatively but has since stopped, accounting for her anemia. Really nothing more to be done for her other than not keep her on stool softeners. Cecal 1 cm very flat polyp status post biopsy and fulguration. Due to its location aggressive fulguration was not performed. Patient will need to have this area revisited in one year to make sure that the area was indeed destroyed. Patient with partially prolapsing internal hemorrhoids suspect that the recent the perianal swelling is due to her bowel preps. Will manage her conservatively for now. We'll plan to discharge the patient home tonight with follow-up in a couple weeks.
--- NOTE | 2016-10-11 19:13 | DISCHARGE SUMMARY E ---
Discharge Summary NAME: JAMES CHAPIN : 1945 AGE: 71Y ADMITTED: 10/10/2016 DISCHARGED: 10/11/2016 DISCHARGE DIAGNOSES: 1. Anemia due to past gastrointestinal bleed. 2. Cecal polyp. 3. Internal hemorrhoids. PROCEDURE PERFORMED DURING HOSPITALIZATION: 1. Blood transfusion x2 units. 2. Esophagogastroduodenoscopy with biopsy. 3. Colonoscopy with biopsy and fulguration of cecal polyp. HOSPITAL COURSE: The patient was admitted for transfusion. She received 2 units of blood, following which she felt much better. Her hemoglobin post transfusion was 9.7 with a hematocrit of 30.3, which is an appropriate increase from 6.7/21.9. With her severe anemia, I felt that an upper and lower endoscopy was indicated to look for source of bleed. She underwent upper endoscopy which demonstrated slight irregularity of the distal esophagus which was biopsied, but otherwise it was unremarkable. The colonoscopy demonstrated internal hemorrhoids but no stigmata of recent bleeding. She had a widely patent transverse colon anastomosis but it had an exudative covering but no evidence of recent bleed. She did have a 1-cm sessile polyp at the cecum which was biopsied and fulgurated. Due to its location, aggressive fulguration was not performed to avoid perforation. This area I felt should be revisited in about a year. The patient tolerated the procedure well. With no evidence of active bleeding, I feel comfortable sending the patient home with followup in 2 weeks. She may resume all of her medications, but I would ask her to hold her Baby Aspirin for about 3 days since biopsies were performed. Additional medication is Colace. She may follow a cardiac diet at home. DICTATING PHYSICIAN: EDITH MOSES M.D. [id number] PHY#: [id number] [id number] JOB#: [id number] ACCT: [id number] cc:Zoila GARCIA M.D. >
[2016-10-12 07:57] VITALS: BP 134/61
== END 2016-10-12 08:20 | disposition home or self-care (01) ==
LOC: ER 16:04 → UNDOADMIN 21:11 → EH 21:11 → OROUT 21:33 → ER 21:33 → 4N 10-11 03:29 → EH 10-11 03:29 → UNDODISIN 10-12 08:20 → OROUT 10-12 08:20
PROVIDERS: ATTEND Surgery
PROC: 30233N1 Transfusion of Nonautologous Red Blood Cells into Peripheral Vein, Percutaneous Approach (ICD-10-PCS; principal; 2016-10-10)
PROC: 0D5H8ZZ Destruction of Cecum, Via Natural or Artificial Opening Endoscopic (ICD-10-PCS; 2016-10-11)
PROC: 0DB38ZX Excision of Lower Esophagus, Via Natural or Artificial Opening Endoscopic, Diagnostic (ICD-10-PCS; 2016-10-11 17:00)
PROC: 0DBH8ZX Excision of Cecum, Via Natural or Artificial Opening Endoscopic, Diagnostic (ICD-10-PCS; 2016-10-11 17:00)
DX: D64.9 Anemia, unspecified (principal); K21.9 Gastro-esophageal reflux disease without esophagitis; D12.0 Benign neoplasm of cecum; I10 Essential (primary) hypertension; K64.8 Other hemorrhoids; R06.02 Shortness of breath; R53.1 Weakness; G47.30 Sleep apnea, unspecified; Z88.5 Allergy status to narcotic agent; Z88.8 Allergy status to other drugs, medicaments and biological substances; Z91.040 Latex allergy status; Z90.49 Acquired absence of other specified parts of digestive tract; Z86.73 Personal history of transient ischemic attack (TIA), and cerebral infarction without residual deficits; Z79.82 Long term (current) use of aspirin; Z79.899 Other long term (current) drug therapy
CPT/HCPCS: 99285; 96360; 43239; 45380; 45388; 86900; 86901; 36415 ×2; 36430; 86850; 85025; 85027; 80048; 80053; 86920; 85379; 88305 ×2; 93971; 71275; P9016 ×2; J2250; J3010; J3490; J2405; J7050; J0171; J1610; J2310

== ENCOUNTER 2017-09-09 07:44 | Day surgery (SDC) | payer MEDICARE, BC ==
[2017-09-09 08:34] LABS: HEMATOCRIT 40.8 % (36.0-47.0); HEMOGLOBIN 13.6 g/dL (12.0-15.5); MEAN CORPUSCULAR HGB CONC 33.4 g/dL (32.0-36.0); MEAN CORPUSCULAR VOLUME 90 fl (80-97); PLATELET COUNT 141 10^3/uL (150-450); RED BLOOD COUNT 4.54 10^6/uL (3.72-5.28); RED CELL DISTRIBUTION WIDTH 14.6 % (11.5-14.0); WHITE BLOOD COUNT 3.3 10^3/uL (4.0-10.5)
[2017-09-09] MEDS ORDERED: GLYCOPYRROLATE INJ 0.4 MG/2 ML VIAL ONE (09:07)
[2017-09-09] MEDS ORDERED: NALOXONE HCL INJ/PF 0.4 MG/1 ML SDV ONE (09:07)
[2017-09-09] MEDS ORDERED: ONDANSETRON HCL INJ/PF 4 MG/2 ML SDV ONE ×2 (09:07→12:07)
[2017-09-09] MEDS ORDERED: FLUMAZENIL INJ 0.5 MG/5 ML VIAL ONE (09:08)
[2017-09-09] MEDS ORDERED: GLUCAGON,HUMAN RECOMB 1 MG INJ ONE (09:08)
[2017-09-09] MEDS ORDERED: EPINEPHRINE INJ 1 MG/10 ML DISP.SYRIN ONE (09:08)
[2017-09-09] MEDS: MIDAZOLAM 2 MG/2 ML INJ ONE ×4 (09:53→10:42)
[2017-09-09] MEDS: FENTANYL CITRATE INJ/PF 100 MCG/2 ML AMPUL ONE ×4 (09:55→10:33)
--- NOTE | 2017-09-09 11:12 | Discharge Summary ---
Discharge Summary (SDC) - Discharge Final Diagnosis: Cecal polyp. Transverse colon polyp. Date of Surgery: 09/09/17 Discharge Date: 09/09/17 Condition: Good Treatment or Instructions: Colonoscopy with biopsies of cecal polyp and transverse colon polyp. May discharge home when met discharge criteria. Hold aspirin for 5 days. May resume if no blood per rectum. Follow-up with me this . Referrals: JULY RANDOLPH MD [Primary Care Provider] - Discharge Diet: As Tolerated Discharge Activity: Activity As Tolerated Report the Following to Your Physician Immediately: Increase in Pain, Fever over 101 Degrees, Unusual Bleeding
[2017-09-09 12:17] VITALS: BP 136/75
--- NOTE | 2017-09-09 12:24 | Operative Report ---
Operative Report DATE OF SURGERY: 09/09/17 PREOPERATIVE DIAGNOSIS: History of colon polyps POSTOPERATIVE DIAGNOSIS: Cecal polyp. Proximal aspect of the transverse colon polyp. OPERATION: Colonoscopy with biopsy of cecal and proximal transverse colon polyp. Yolanda ink marking of proximal transverse colon polyp. SURGEON: SARITA MOSES ANESTHESIA: Moderate Sedation TISSUE REMOVED OR ALTERED: Cecal polyp, proximal aspect of the transverse colon polyp. COMPLICATIONS: None ESTIMATED BLOOD LOSS: Minimal INTRAOPERATIVE FINDINGS: 1-1/2 cm region of sessile polyp at the cecum. 1 cm region of sessile mucosal irregularity at the very proximal aspect of the transverse colon (just distal to the hepatic flexure). PROCEDURE: Informed consent was obtained. Patient was brought to the endoscopy suite. IV sedation with Versed and fentanyl was administered. Digital rectal exam revealed no palpable perianal masses. Endoscope was passed via the patient's anus it was fed to the cecum. Patient's sigmoid colon was markedly redundant making the procedure difficult. The bowel prep was good. At the cecum there was a 1.5 cm region of mucosal irregularity consistent with a sessile polyp. Multiple biopsies were performed of this region. It was too large of an area however to perform a complete polypectomy at the cecum. Remainder of the right colon appeared normal. Just past the hepatic flexure in the proximal aspect of the transverse colon there was a 1 cm region of similar appearing mucosal irregularity consistent with a sessile polyp. This region was extremely difficult to visualize and biopsy. I was able to obtain couple of cold biopsies but I was really uncertain whether I obtained a piece of this polyp. This region was Yolanda inked 180 apart. The remainder of the transverse colon appeared normal. There was a well-healed transverse colon anastomosis. The left colon and sigmoid colon the rectum were normal with no polyps and no masses. I passed the scope several times through the sigmoid colon to obtain adequate visualization since the sigmoid colon was markedly redundant. Patient tolerated procedure well with no apparent complications and was taken to the recovery area in stable condition. I do not think the cecal polyp can be treated endoscopically. It appeared more prominent than the last scope a year ago. Patient also has a proximal transverse colon polyp that is too flat and in a location that precludes endoscopic removal. I will discuss with the patient surgical treatment of these 2 polyps.
== END 2017-09-09 12:25 | disposition home or self-care (01) ==
LOC: END 07:44
PROVIDERS: ATTEND Surgery
PROC: 0DBH8ZX Excision of Cecum, Via Natural or Artificial Opening Endoscopic, Diagnostic (ICD-10-PCS; principal; 2017-09-09 09:00)
PROC: 0DBL8ZX Excision of Transverse Colon, Via Natural or Artificial Opening Endoscopic, Diagnostic (ICD-10-PCS; 2017-09-09 09:00)
DX: Z12.11 Encounter for screening for malignant neoplasm of colon (principal); D12.0 Benign neoplasm of cecum; D12.3 Benign neoplasm of transverse colon; M19.90 Unspecified osteoarthritis, unspecified site; I10 Essential (primary) hypertension; Z88.5 Allergy status to narcotic agent; Z86.73 Personal history of transient ischemic attack (TIA), and cerebral infarction without residual deficits; Z79.899 Other long term (current) drug therapy
CPT/HCPCS: 45380; 45381; 36415; 85027; 88305 ×2; J2250; J3010; J2405; J0171; J1610; J2310; J3490

== ENCOUNTER 2018-08-10 01:14 | Emergency (ER) | payer MEDICARE, BC ==
[2018-08-10] MEDS ORDERED: NORMAL SALINE 1000 ML 1,000 ML IV ONE (01:42)
[2018-08-10] MEDS ORDERED: ONDANSETRON HCL INJ/PF 4 MG/2 ML SDV IV ONE (01:42)
--- NOTE | 2018-08-10 01:45 | ER Document Report ---
ED General - General Chief Complaint: Nausea/Vomiting/Diarrhea Stated Complaint: NAUSEA/VOMITING Time Seen by Provider: 08/10/18 01:34 Primary Care Provider: JULY RANDOLPH MD [Primary Care Provider] - Follow up as needed Notes: Patient is a very pleasant 72-year-old female presents with complaint of intractable vomiting and diarrhea that started on 9 PM. She says she is vomited and had so much diarrhea that she feels extremely weak. States she had pain in her abdomen. No chest pain. No fevers. No blood in her stool. No blood in her emesis. She had a colon resection in 2017 due to a colonic mass. She had recent colonoscopy which she said was normal. No recent antibiotic use in the last month. No recent sick contacts that she is aware of. TRAVEL OUTSIDE OF THE [place] IN LAST 30 DAYS: No - Related Data Allergies/Adverse Reactions: latex Allergy (Verified 08/10/18 01:51) Rash, skin "rips" off morphine [Morphine] Allergy (Verified 08/10/18 01:51) SHORT OF BREATH, VERY WEAK tramadol [Tramadol] Allergy (Verified 08/10/18 01:51) DRAINED OF ENERGY Past Medical History - Social History Smoking Status: Never Smoker Frequency of alcohol use: None Drug Abuse: None Family History: Reviewed & Not Pertinent - Past Medical History Cardiac Medical History: Reports: Hx Hypertension Denies: Hx Atrial Fibrillation, Hx Congestive Heart Failure, Hx Coronary Artery Disease, Hx Heart Attack, Hx Hypercholesterolemia, Hx Peripheral Vascular Disease, Hx Pulmonary Embolism, Hx Heart Murmur Pulmonary Medical History: Reports: Hx Asthma, Hx Bronchitis, Hx Sleep Apnea - BIPAP Denies: Hx COPD, Hx Pneumonia, Hx Respiratory Failure, Hx Tuberculosis Neurological Medical History: Reports: Hx Cerebrovascular Accident - ANEUYRSM BRAIN 2013, Hx Migraine. Denies: Hx Seizures Endocrine Medical History: Denies: Hx Graves' Disease, Hx Hyperthyroidism, Hx Hypothyroidism Renal/ Medical History: Denies: Hx Ovarian Cysts, Hx Peritoneal Dialysis, Hx Pelvic Inflammatory Disease Malignancy Medical History: Denies: Hx Breast Cancer, Hx Cervical Cancer, Hx Leukemia, Hx Lung Cancer, Hx Ovarian Cancer GI Medical History: Reports: Hx Gastroesophageal Reflux Disease. Denies: Hx Crohn's Disease, Hx Hiatal Hernia, Hx Irritable Bowel, Hx Liver Failure, Hx Pancreatitis, Hx Ulcer Musculoskeletal Medical History: Denies Hx Arthritis, Denies Hx Fibromyalgia, Denies Hx Multiple Sclerosis, Denies Hx Muscular Dystrophy Psychiatric Medical History: Denies: Hx Bipolar Disorder, Hx Dementia, Hx Depression, Hx Post Traumatic Stress Disorder, Hx Schizophrenia Traumatic Medical History: Reports: Hx Fractures - BACK Infectious Medical History: Denies: Hx HIV Past Surgical History: Reports: Hx Cholecystectomy, Hx Hysterectomy, Other - Partial transverse colon resection a month ago.. Denies: Hx Appendectomy, Hx Bowel Surgery, Hx Section, Hx Colostomy, Hx Coronary Artery Bypass Graft, Hx Gastric Bypass Surgery, Hx Herniorrhaphy, Hx Mastectomy, Hx Pacemaker, Hx Tonsillectomy, Hx Tubal Ligation - Immunizations Hx Diphtheria, Pertussis, Tetanus Vaccination: No - Unsure Hx Pneumococcal Vaccination: 07/07/14 Review of Systems - Review of Systems Notes: My Normal Review Basic REVIEW OF SYSTEMS: CONSTITUTIONAL : Denies fever, chills, or sweats. Denies recent illness. EENT: Denies eye, ear, throat, or mouth pain or symptoms. Denies nasal or sinus congestion. CARDIOVASCULAR: Denies chest pain. RESPIRATORY: Denies cough, cold, or chest congestion. Denies shortness of breath, difficulty breathing, or wheezing. GASTROINTESTINAL: No abdominal pain. Recurrent vomiting and diarrhea. GENITOURINARY: Denies difficulty urinating, painful urination, burning, frequency, or blood in urine. MUSCULOSKELETAL: Denies neck or back pain or joint pain or swelling. SKIN: Denies rash or skin lesions. NEUROLOGICAL: Denies altered mental status or loss of consciousness. Denies headache. Denies weakness or paralysis or loss of use of either side. Denies problems with gait or speech. Denies sensory or motor loss. ALL OTHER SYSTEMS REVIEWED AND NEGATIVE. Physical Exam - Vital signs Vitals: Temp Pulse BP Pulse Ox 98.0 F 105 H 90/56 L 97 08/10/18 01:27 08/10/18 01:27 08/10/18 01:27 08/10/18 01:27 - Notes Notes: General Appearance: Well nourished, alert, cooperative, no acute distress, no obvious discomfort. Weak appearing. Vitals: reviewed, See vital signs table. Head: no swelling or tenderness to the head Eyes: PERRL, EOMI, Conjuctiva clear Mouth: No decreasd moisture Lungs: No wheezing, No rales, No rhonci, No accessory muscle use, good air exchange bilaterally. Heart: Normal rate, Regular rythm, No murmur, no rub Abdomen: Normal BS, soft, No rigidity, No abdominal tenderness, No guarding, no rebound, no abdominal masses, no organomegaly Extremities: good pulses in all extremities, no swelling or tenderness in the extremities, no edema. Skin: warm, dry, appropriate color, no rash Neuro: speech clear, oriented x 3, normal affect, responds appropriately to questions. Course - Re-evaluation Re-evalutation: 08/10/18 03:56 Patient is feeling much improved. She was able to drink water hold down without difficulty. She no longer has nausea. Laboratory evaluation is unremarkable. Vital signs are now normal. This time I feel she safe to be discharged home. She has no pain to palpation of her abdomen. She looks well. Patient encouraged to return to ER immediately if she has fevers, intractable vomiting, bloody stools, or if she feels that she is worsening any way. Patient encouraged to return to ER if she develops abdominal pain as well. Patient agrees with plan will be discharged home. Dictation of this chart was performed using voice recognition software; therefore, there may be some unintended grammatical errors. - Vital Signs Vital signs: Temp Pulse Resp BP Pulse Ox 98.0 F 79 20 124/55 L 98 08/10/18 01:27 08/10/18 01:30 08/10/18 03:01 08/10/18 03:01 08/10/18 03:01 - Laboratory Result Diagrams: 08/10/18 01:35 08/10/18 01:35 Laboratory results interpreted by me: 08/10/18 08/10/18 01:35 01:35 RDW 14.6 H Plt Count 142 L Seg Neuts % (Manual) 91 H Lymphocytes % (Manual) 2 L Abs Lymphs (Manual) 0.2 L Chloride 115 H Carbon Dioxide 21 L BUN 21 H Est GFR (Non-Af Amer) 52 L Glucose 194 H AST 45 H - EKG Interpretation by Me Additional EKG results interpreted by me: 08/10/18 01:59 EKG is reviewed and interpreted by me. EKG shows sinus rhythm with a rate of [address] segment elevation or depression. No ischemic T wave inversions. CO interval, QRS duration, QT intervals are within normal range. No old EKG available for comparison. Discharge - Discharge Clinical Impression: Vomiting and diarrhea Condition: Good Disposition: HOME, SELF-CARE Additional Instructions: Please take the Zofran as prescribed. This will help with your nausea. Please continue to drink non-caffeinated liquids to stay well-hydrated. Please follow- up with your doctor in 1-2 days for reevaluation. Please return to the ER if you develop abdominal pain, recurrent vomiting despite the Zofran, bloody stools, high fevers, or feel that you are worsening in any way. Prescriptions: Ondansetron [Zofran Odt 4 mg Tablet] 1 tab PO Q4H PRN #15 tab.rapdis PRN Reason: For Nausea/Vomiting Referrals: JULY RANDOLPH MD [Primary Care Provider] - 08/11/18
[2018-08-10] MEDS ORDERED: RINGERS SOLUTION,LACTATED 1,000 ML IV ONE (01:55)
[2018-08-10 02:13] LABS: ALANINE AMINOTRANSFERASE 37 U/L (9-52); ALKALINE PHOSPHATASE 63 U/L (38-126); ANION GAP 9 (5-19); ASPARTATE AMINO TRANSFERASE 45 U/L (14-36); BILIRUBIN,DIRECT 0.1 mg/dL (0.0-0.4); BILIRUBIN,TOTAL 0.6 mg/dL (0.2-1.3); BLOOD UREA NITROGEN 21 mg/dL (7-20); CALCIUM 9.2 mg/dL (8.4-10.2); CARBON DIOXIDE 21 mmol/L (22-30); CHLORIDE 115 mmol/L (98-107); GLUCOSE 194 mg/dL (75-110); POTASSIUM 3.6 mmol/L (3.6-5.0); SODIUM 144.6 mmol/L (137-145); TOTAL PROTEIN 6.6 g/dL (6.3-8.2)
[2018-08-10 02:16] LABS: HEMATOCRIT 45.2 % (36.0-47.0); MEAN CORPUSCULAR HEMOGLOBIN 30.3 pg (27.0-33.4); MEAN CORPUSCULAR HGB CONC 33.1 g/dL (32.0-36.0); MEAN CORPUSCULAR VOLUME 91 fl (80-97); PLATELET COUNT 142 10^3/uL (150-450); RED BLOOD COUNT 4.94 10^6/uL (3.72-5.28); RED CELL DISTRIBUTION WIDTH 14.6 % (11.5-14.0); WHITE BLOOD COUNT 8.8 10^3/uL (4.0-10.5)
[2018-08-10 02:21] LABS: ABSOLUTE LYMPHOCYTES# (MANUAL) 0.2 10^3/uL (0.5-4.7); ABSOLUTE MONOCYTES # (MANUAL) 0.6 10^3/uL (0.1-1.4); BASOPHILS % (MANUAL) 0 % (0-2); EOSINOPHILS % (MANUAL) 0 % (0-6); LYMPHOCYTES % (MANUAL) 2 % (13-45); MONOCYTES % (MANUAL) 7 % (3-13); SEGMENTED NEUTROPHILS % (MAN) 91 % (42-78); TOTAL CELLS COUNTED 100
[2018-08-10 02:22] LABS: ANISOCYTOSIS 1+; PLATELET COMMENT ADEQUATE; POLYCHROMASIA 1+
[2018-08-10] MEDS ORDERED: ONDANSETRON ODT 4 MG TAB (6 TAB/ER DISP) PO PRN (03:48)
[2018-08-10 04:12] VITALS: BP 111/61
--- NOTE | 2018-08-10 06:13 | EKG REPORT ---
SEVERITY:- NORMAL ECG - SINUS RHYTHM : Confirmed by: Oli Lynch MD 10-Aug-2018 06:12:56
== END 2018-08-10 04:12 | disposition home or self-care (01) ==
LOC: ER 01:14
DX: R11.2 Nausea with vomiting, unspecified (principal); R19.7 Diarrhea, unspecified; R53.1 Weakness; I10 Essential (primary) hypertension; J45.909 Unspecified asthma, uncomplicated; Z90.49 Acquired absence of other specified parts of digestive tract; Z91.040 Latex allergy status; Z88.5 Allergy status to narcotic agent
CPT/HCPCS: 93005; 99284; 96361; 96374; 36415; 85025; 80053; 93010; J2405; J7120; A9270

== ENCOUNTER 2019-03-28 16:13 | Emergency (ER) | payer MEDICARE, BC ==
--- NOTE | 2019-03-28 16:41 | ER Document Report ---
ED Medical Screen (RME) - General Chief Complaint: Lower Abdominal Pain Stated Complaint: LEG PAIN Time Seen by Provider: 03/28/19 16:37 Primary Care Provider: JULY RANDOLPH MD [Primary Care Provider] - Follow up as needed Mode of Arrival: Ambulatory Information source: Patient Notes: Patient presents to the emergency department complaints of a knot in her right g roin area. Reports she had an angiogram 2 years ago and it feels the same as it did then. Reports it is not a lymph node. Denies fever vomiting diarrhea. Denies pain with void. Reports felt nauseated earlier. I have greeted and performed a rapid initial assessment of this patient. A comprehensive ED assessment and evaluation of the patient, analysis of test results and completion of the medical decision making process will be conducted by additional ED providers. Dictation of this chart was performed using voice recognition software; therefore, there may be some unintended grammatical errors. TRAVEL OUTSIDE OF THE [place] IN LAST 30 DAYS: No - Related Data Allergies/Adverse Reactions: latex Allergy (Verified 03/28/19 16:34) Rash, skin "rips" off morphine [Morphine] Allergy (Verified 03/28/19 16:34) SHORT OF BREATH, VERY WEAK tramadol [Tramadol] Allergy (Verified 03/28/19 16:34) DRAINED OF ENERGY Past Medical History - Social History Chew tobacco use (# tins/day): No Frequency of alcohol use: None Drug Abuse: None - Past Medical History Cardiac Medical History: Reports: Hx Hypertension Denies: Hx Atrial Fibrillation, Hx Congestive Heart Failure, Hx Coronary Artery Disease, Hx Heart Attack, Hx Hypercholesterolemia, Hx Peripheral Vascular Disease, Hx Pulmonary Embolism, Hx Heart Murmur Pulmonary Medical History: Reports: Hx Asthma, Hx Bronchitis, Hx Sleep Apnea - BIPAP Denies: Hx COPD, Hx Pneumonia, Hx Respiratory Failure, Hx Tuberculosis Neurological Medical History: Reports: Hx Cerebrovascular Accident - ANEUYRSM BRAIN 2013, Hx Migraine. Denies: Hx Seizures Endocrine Medical History: Denies: Hx Graves' Disease, Hx Hyperthyroidism, Hx Hypothyroidism Renal/ Medical History: Denies: Hx Ovarian Cysts, Hx Peritoneal Dialysis, Hx Pelvic Inflammatory Disease Malignancy Medical History: Denies: Hx Breast Cancer, Hx Cervical Cancer, Hx Leukemia, Hx Lung Cancer, Hx Ovarian Cancer GI Medical History: Reports: Hx Gastroesophageal Reflux Disease. Denies: Hx Crohn's Disease, Hx Hiatal Hernia, Hx Irritable Bowel, Hx Liver Failure, Hx Pancreatitis, Hx Ulcer Musculoskeltal Medical History: Denies Hx Arthritis, Denies Hx Fibromyalgia, Denies Hx Multiple Sclerosis, Denies Hx Muscular Dystrophy, Denies Hx Systemic Lupus Erythematosus Psychiatric Medical History: Denies: Hx Bipolar Disorder, Hx Dementia, Hx Depression, Hx Post Traumatic St ress Disorder, Hx Schizophrenia Traumatic Medical History: Reports: Hx Fractures - BACK Infectious Medical History: Denies: Hx HIV Past Surgical History: Reports: Hx Cholecystectomy, Hx Hysterectomy, Other - Partial transverse colon resection a month ago.. Denies: Hx Appendectomy, Hx Bowel Surgery, Hx Section, Hx Colostomy, Hx Coronary Artery Bypass Graft, Hx Gastric Bypass Surgery, Hx Herniorrhaphy, Hx Mastectomy, Hx Pacemaker, Hx Tonsillectomy, Hx Tubal Ligation - Immunizations Hx Diphtheria, Pertussis, Tetanus Vaccination: No - Unsure Influenza Administration Date for 04/2017 - 09/2017 Season: 04/06/17 Physical Exam - Vital signs Vitals: Temp Pulse Resp BP Pulse Ox 97.9 F 70 18 150/62 H 97 03/28/19 16:17 03/28/19 16:17 03/28/19 16:17 03/28/19 16:17 03/28/19 16:17 Course - Vital Signs Vital signs: Temp Pulse Resp BP Pulse Ox 97.9 F 70 18 150/62 H 97 03/28/19 16:17 03/28/19 16:17 03/28/19 16:17 03/28/19 16:17 03/28/19 16:17 Doctor's Discharge - Discharge Referrals: JULY RANDOLPH MD [Primary Care Provider] - Follow up as needed
[2019-03-28 17:29] LABS: AMORPHOUS SEDIMENT,URINE TRACE /HPF; APPEARANCE,URINE CLEAR; BILIRUBIN,URINE NEGATIVE (NEGATIVE); COLOR,URINE YELLOW; GLUCOSE, URINE NEGATIVE (NEGATIVE); KETONES,URINE NEGATIVE (NEGATIVE); LEUKOCYTE ESTERASE,URINE NEGATIVE (NEGATIVE); NITRITE,URINE NEGATIVE (NEGATIVE); PROTEIN,URINE NEGATIVE (NEGATIVE); URINE SPECIFIC GRAVITY 1.014; UROBILINOGEN,URINE NEGATIVE mg/dL (<2.0)
--- NOTE | 2019-03-28 18:52 | RADIOLOGY REPORT (SQ) ---
EXAM DESCRIPTION: VENOUS UNILATERAL LOWER COMPLETED DATE/TIME: 03/28/2019 6:24 pm REASON FOR STUDY: right groin pain and swelling COMPARISON: None. TECHNIQUE: Dynamic and static nogueira scale and color images acquired of the right leg venous system. S elected spectral images acquired with additional compression and augmentation maneuvers. The contrala teral common femoral vein and saphenofemoral junction were also imaged. Images stored on PACS. LIMITATIONS: None. FINDINGS: COMMON FEMORAL: Normal phasicity, compression and augmentation. No visualized echogenic ma terial on nogueira scale. No defects on color images. FEMORAL: Normal compression and augmentation. No visualized echogenic material on nogueira scale. No defe cts on color images. POPLITEAL: Normal compression, augmentation. No visualized echogenic material on nogueira scale. No defec ts on color images. CALF VESSELS: Normal compression, augmentation. No visualized echogenic material on nogueira scale. No de fects on color images. GSV and SSV: Normal compression, augmentation. No visualized echogenic material on nogueira scale. No def ects on color images. ANY DEEP VENOUS INSUFFICIENCY: Not evaluated. ANY EVIDENCE OF POPLITEAL CYST: No. OTHER: No other significant finding. CONTRALATERAL COMMON FEMORAL VEIN AND SAPHENOFEMORAL JUNCTION: Normal phasicity, compression and augmentation. No visualized echogenic material on nogueira scale. No de fects on color images. IMPRESSION: NO EVIDENCE DVT OR SVT IN THE RIGHT LEG. TECHNICAL DOCUMENTATION: JOB ID: [id number] [id number] [employer]- All Rights Reserved Reading location - IP/workstation name: [email or web address]
--- NOTE | 2019-03-28 19:08 | ER Document Report ---
ED General - General Chief Complaint: Lower Abdominal Pain Stated Complaint: LEG PAIN Time Seen by Provider: 03/28/19 16:37 Primary Care Provider: JULY RANDOLPH MD [Primary Care Provider] - Follow up as needed Mode of Arrival: Ambulatory Notes: 73-year-old female presents emergency department complaining of a knot in her right groin that appeared around 230 this afternoon and has been improving since then. Patient states that it was quite sore and very tender to palpation and caused a little bit of a shooting pain. Denies any injury to the area. Patient states she is worried that it may be a blood clot in her leg because she knows blood vessels run past there. Patient states that when you touch it hurts but it is not red and she also states that when you grab it you are able to pick it up and move away from her leg. Denies any nausea, vomiting, diarrhea, abdominal pain, dysuria or vaginal discharge. Denies any injury to her feet. TRAVEL OUTSIDE OF THE [place] IN LAST 30 DAYS: No - Related Data Allergies/Adverse Reactions: latex Allergy (Verified 03/28/19 16:34) Rash, skin "rips" off morphine [Morphine] Allergy (Verified 03/28/19 16:34) SHORT OF BREATH, VERY WEAK tramadol [Tramadol] Allergy (Verified 03/28/19 16:34) DRAINED OF ENERGY Past Medical History - General Information source: Patient - Social History Smoking Status: Former Smoker Chew tobacco use (# tins/day): No Frequency of alcohol use: None Drug Abuse: None Family History: Reviewed & Not Pertinent Patient has suicidal ideation: No Patient has homicidal ideation: No - Past Medical History Cardiac Medical History: Reports: Hx Hypertension Denies: Hx Atrial Fibrillation, Hx Congestive Heart Failure, Hx Coronary Artery Disease, Hx Heart Attack, Hx Hypercholesterolemia, Hx Peripheral Vascular Disease, Hx Pulmonary Embolism, Hx Heart Murmur Pulmonary Medical History: Reports: Hx Asthma, Hx Bronchitis, Hx Sleep Apnea - BIPAP Denies: Hx COPD, Hx Pneumonia, Hx Respiratory Failure, Hx Tuberculosis Neurological Medical History: Reports: Hx Cerebrovascular Accident - ANEUYRSM BRAIN 2013, Hx Migraine. Denies: Hx Seizures Endocrine Medical History: Denies: Hx Graves' Disease, Hx Hyperthyroidism, Hx Hypothyroidism Renal/ Medical History: Denies: Hx Ovarian Cysts, Hx Peritoneal Dialysis, Hx Pelvic Inflammatory Disease Malignancy Medical History: Denies: Hx Breast Cancer, Hx Cervical Cancer, Hx Leukemia, Hx Lung Cancer, Hx Ovarian Cancer GI Medical History: Reports: Hx Gastroesophageal Reflux Disease. Denies: Hx Crohn's Disease, Hx Hiatal Hernia, Hx Irritable Bowel, Hx Liver Failure, Hx Pancreatitis, Hx Ulcer Musculoskeletal Medical History: Denies Hx Arthritis, Denies Hx Fibromyalgia, Denies Hx Multiple Sclerosis, Denies Hx Muscular Dystrophy, Denies Hx Systemic Lupus Erythematosus Psychiatric Medical History: Denies: Hx Bipolar Disorder, Hx Dementia, Hx Depression, Hx Post Traumatic Stress Disorder, Hx Schizophrenia Traumatic Medical History: Reports: Hx Fractures - BACK Infectious Medical History: Denies: Hx HIV Past Surgical History: Reports: Hx Cholecystectomy, Hx Hysterectomy, Other - Partial transverse colon resection a month ago.. Denies: Hx Appendectomy, Hx Bowel Surgery, Hx Section, Hx Colostomy, Hx Coronary Artery Bypass Graft, Hx Gastric Bypass Surgery, Hx Herniorrhaphy, Hx Mastectomy, Hx Pacemaker, Hx Tonsillectomy, Hx Tubal Ligation - Immunizations Hx Diphtheria, Pertussis, Tetanus Vaccination: No - Unsure Hx Pneumococcal Vaccination: 07/07/14 Review of Systems - Review of Systems Gastrointestinal: No symptoms reported Musculoskeletal: See HPI Hematologic/Lymphatic: See HPI -: Yes All other systems reviewed and negative Physical Exam - Vital signs Vitals: Temp Pulse Resp BP Pulse Ox 97.9 F 70 18 150/62 H 97 03/28/19 16:17 03/28/19 16:17 03/28/19 16:17 03/28/19 16:17 03/28/19 16:17 Interpretation: Hypertensive - Notes Notes: GENERAL: Alert, interacts well. No acute distress. HEAD: Normocephalic, atraumatic EYES: Pupils equal, round and reactive to light, extraocular movements intact. ENT: Oral mucosa moist, tongue midline. NECK: Full range of motion, supple, trachea midline. LUNGS: Clear to auscultation bilaterally, no wheezes, rales or rhonchi, no respiratory distress. HEART: Regular rate and rhythm, no murmurs, gallops, rubs. ABDOMEN: Soft, nontender, nondistended, bowel sounds present in all 4 quadrants. EXTREMITIES: Moves all 4 extremities spontaneously, no edema, radial and dorsalis pedis pulses 2/4 bilaterally. No cyanosis. No injuries noted to the feet, right groin has a somewhat tender firm nonenlarged lymph node that is easily movable, no erythema. No pulsatile mass, no hernia. NEUROLOGICAL: Alert and oriented x3, normal speech, biceps and patellar DTRs 2+ bilaterally. PSYCH: Normal mood, normal affect. SKIN: Warm, Dry, normal turgor, no rashes or lesions noted. Course - Re-evaluation Re-evalutation: 03/28/19 19:06 Urinalysis was negative for any signs of infection, I see no other source of infection that would cause this enlarged lymph node, Doppler ultrasound is negative for DVT or SVT. Patient's enlarged a lump in her groin has been improving ever since it started around 230 this afternoon. Patient will be discharged home, requested follow-up with primary care physician if this continues to enlarge and causes pain. May require a biopsy if it is still enlarged in 1 to 2 months. - Vital Signs Vital signs: Temp Pulse Resp BP Pulse Ox 97.9 F 70 18 150/62 H 97 03/28/19 16:17 03/28/19 16:17 03/28/19 16:17 03/28/19 16:17 03/28/19 16:17 Discharge - Discharge Clinical Impression: Right inguinal lymph node, Enlarged lymph node Condition: Stable Disposition: HOME, SELF-CARE Additional Instructions: There is no evidence of blood clot today. There is no evidence of urinary tract infection. This appears to be enlarged lymph node. Sometimes they enlarge for no discernible reason and other times we later find an infection. If you develop new symptoms please return to the emergency department. If it stays persistently enlarged for a month please follow-up with your primary care physician as they may want to take a biopsy of it. Referrals: JULY RANDOLPH MD [Primary Care Provider] - Follow up as needed
[2019-03-28 19:26] VITALS: BP 146/66
== END 2019-03-28 19:26 | disposition home or self-care (01) ==
LOC: ER 16:13
DX: R59.0 Localized enlarged lymph nodes (principal); I10 Essential (primary) hypertension; J45.909 Unspecified asthma, uncomplicated; Z91.040 Latex allergy status; Z88.5 Allergy status to narcotic agent; Z87.891 Personal history of nicotine dependence
CPT/HCPCS: 81001; 93971; 99284